=== PATIENT | male | born 1935 | race Caucasian/White ===

== ENCOUNTER 2024-04-17 21:36 | Emergency (ER) | payer MEDICARE, OTHER, SELFPAY ==
[2024-04-17 21:40] VITALS: BP 170/78
--- NOTE | 2024-04-17 22:39 | ED.GENMED ---
History of Present Illness
General
Chief Complaint: Throat Problem
Source: patient
Exam Limitations: none
Time Seen by Provider: 04/17/24 22:30
History of Present Illness
History of Present Illness:
88yoM with a history of hypertension, prior pulmonary embolism, and obesity presenting with his and daughter for evaluation after a choking episode about 2 hours ago. Patient was eating at a [employer] restaurant for dinner this evening. He was
eating fried rice and noodles when he started to have a coughing fit. He also vomited afterwards which was mainly mucus. Patient has had similar episodes in the past although none that have been this severe. He is currently feeling better and
reports being asymptomatic. He denies any foreign body sensation or shortness of breath.
Past History
Past History
ED Past Medical History: COPD, GERD, HTN, Other (gout, PE, GI bleeding. DVT), Other (Sleep apnea, anemia, prostate cancer) and Other (VTE, gout, anemia)
ED Past Surgical History: Orthopedic (Left total knee) and Other (Hernia)
Social History
Tobacco: Former smoker
Alcohol: None
Drug: None
Personal:
Living: with family
Employment: Retired
Phy Exam
General Physical Exam
General Presentation: well appearing and no apparent distress
General age: appears stated age
General Skin: warm and dry
General Habitus: normal
General Mental: alert
ENT Exam
ENT Exam: normocephalic and other (Posterior oropharynx appears normal. Normal phonation. Tolerating oral secretions without difficulty.)
Pulmonary Exam
Pulmonary Exam: lungs clear, no respiratory distress, no rales, no crackles and no rhonchi
Neurological Exam
Neurological Exam: alert
Sergio Coma Scale
Eye Opening: Spontaneous
Verbal Response: Oriented
Motor Response: Obeys Commands
GCS Total Score: 15
Skin Exam
Skin Exam: normal color and warm/dry
Psychiatric Exam
Psychiatric Exam: normal mood/affect
Course
Vital Signs
Initial and Last Documented VS:
Initial Vital Signs
Temp Pulse Resp BP Pulse Ox
98.9 F 71 20 170/78 95
04/17/24 21:40 04/17/24 21:40 04/17/24 21:40 04/17/24 21:40 04/17/24 21:40
Last Documented Vital Signs
Temp Pulse Resp BP Pulse Ox
98.9 F 71 20 170/78 95
04/17/24 21:40 04/17/24 21:40 04/17/24 21:40 04/17/24 21:40 04/17/24 21:40
MDM/Problems Addressed
Differential Diagnosis Includes:
88yoM here after an episode of choking while eating rice/noodles at a [employer] restaurant this evening. Triage note documents that he feels as if something is stuck although he reports being asymptomatic on initial assessment. Denies further
vomiting, cough, shortness of breath. He is hypertensive with otherwise normal vital signs. He is well-appearing in no acute distress. Patient tolerating oral secretions on exam. Lungs clear to auscultation and respirations nonlabored.
Differential diagnosis includes but is not limited to: Dysphagia, choking, aspiration, doubt esophageal food bolus
Initial ED plan: Will trial p.o. challenge and reassess.
*Critical Care Note
Total Time (30-74mins, 75-104mins- exclusive of procedures): Not Applicable
Update Note
Update Note:
Patient given water and was able to drink this without difficulty. Patient states he feels fine and would like to go home now. No clinical evidence of esophageal obstruction. does report that patient has had similar episodes in the past. He
was advised to follow-up with his PCP to discuss possible speech therapy. ED return precautions discussed. Patient and family in agreement with plan. He was discharged in stable condition.
ED Attending Note
-
Portions of this chart may have been created with voice recognition software.� Occasional wrong word or��sound alike� substitutions may have occurred due to the inherent limitations of voice recognition software.
Discharge Plan
Departure
Patient Disposition: Home (Routine Discharge)
Date of Disposition: 04/17/24
Time of Disposition: 23:30
Patient with high blood pressure during this ER visit?: Yes
Discharge Problem:
Choking episode
Instructions: Choking
Prescriptions:
No Action
allopurinol 100 MG tablet
50 mg PO DAILY
latanoprost 1 DROP drops
1 drp BOTH EYES HS
PreserVision AREDS-2 1 EACH capsule
1 ea PO BID
metoprolol succinate 100 MG tablet extended release 24 hr
50 mg PO BID
tolterodine 2 MG capsule,extended release 24hr
2 mg PO DAILY Qty: 30 0RF
cyanocobalamin (vitamin B-12) 1,000 MCG tablet
1,000 mcg PO DAILY Qty: 30 0RF
Eliquis 2.5 MG tablet
2.5 mg PO BID Qty: 60 0RF
Vitamin D3 100 mcg (4,000 unit) Capsule
100 mcg PO DAILY
furosemide 40 MG tablet
20 mg PO DAILY
Referrals:
Sukhjinder Sanchez, DO [Family Provider] -
Activity Restrictions/Additional Instructions:
Please follow-up with your family doctor to discuss speech therapy. Return to the ER with any worsening symptoms, drooling, or inability to swallow your saliva.
Interventions
Interventions:
*Risk Screen - Suicide Last Done: 04/17/24 21:39
*General Assessment Last Done: 04/17/24 21:39
*Neglect/Abuse Screening Last Done: 04/17/24 23:46
ED- Fall Risk Assessment Last Done: 04/17/24 23:46
*ED COVID-19 Vaccine History Last Done: 04/17/24 21:39
*Nursing Disposition Last Done: 04/17/24 23:46
ED- Pulmonary Assessment Last Done: 04/17/24 23:46
Discharge Date and Time
Discharge Date/Time: 04/17/24 23:46
Print Language: POLISH
== END 2024-04-17 23:46 | disposition home or self-care (01) ==
LOC: EMR 21:36
PROVIDERS: EMERGENCY PHYSICIAN Emergency Medicine; FAMILY PHYSICIAN Family Medicine
DX: R09.89 Other specified symptoms and signs involving the circulatory and respiratory systems (principal); T17.928A Food in respiratory tract, part unspecified causing other injury, initial encounter; R11.10 Vomiting, unspecified; X58.XXXA Exposure to other specified factors, initial encounter; E66.9 Obesity, unspecified; J44.9 Chronic obstructive pulmonary disease, unspecified; I10 Essential (primary) hypertension; K21.9 Gastro-esophageal reflux disease without esophagitis; G47.30 Sleep apnea, unspecified; M10.9 Gout, unspecified; D64.9 Anemia, unspecified; Z96.652 Presence of left artificial knee joint; Z85.46 Personal history of malignant neoplasm of prostate; Z86.718 Personal history of other venous thrombosis and embolism; Z86.711 Personal history of pulmonary embolism; Z87.891 Personal history of nicotine dependence
CPT/HCPCS: 99282

== ENCOUNTER 2024-05-07 09:35 | Outpatient (RCR) | payer OTHER, SELFPAY | END 2024-05-07 23:59 | disposition home or self-care (01) | LOC: RST 09:35 | PROVIDERS: ATTENDING PHYSICIAN Family Medicine | DX: R13.12 Dysphagia, oropharyngeal phase (principal); R09.89 Other specified symptoms and signs involving the circulatory and respiratory systems | CPT/HCPCS: 92526; 92610 ==

== ENCOUNTER → 2024-06-21 10:23 | Outpatient (REF) | payer OTHER, SELFPAY | LOC: RST 10:23 | PROVIDERS: ATTENDING PHYSICIAN Family Medicine | DX: R09.89 Other specified symptoms and signs involving the circulatory and respiratory systems (principal); R13.12 Dysphagia, oropharyngeal phase | CPT/HCPCS: 74230; 92611 ==